=== PATIENT | female | born 1955 | race Asian ===

== ENCOUNTER 2019-06-02 06:27 | Day surgery (SDC) | payer MEDICARE, BC ==
[2019-06-02] MEDS ORDERED: BUPIVACAINE 0.75% (MPF) 10 ML INJ (06:48)
[2019-06-02] MEDS ORDERED: TETRACAINE 0.5% 4 ML OPH (06:49)
[2019-06-02] MEDS ORDERED: EPINEPHrine 1 MG INJ (06:49)
[2019-06-02] MEDS ORDERED: LIDOCAINE /PF 2% 10 ML AMPUL (06:49)
[2019-06-02] MEDS ORDERED: NA BICARB 50 MEQ/50 ML VIAL (06:49)
[2019-06-02] MEDS: NEPAFENAC 0.1% 3 ML OPH OPER (07:08)
[2019-06-02] MEDS: CYCLOPENTOLATE 2% 2 ML OPH OPER (07:09)
[2019-06-02] MEDS: PHENYLephrine 10% 5 ML OPH OPER (07:09)
[2019-06-02] MEDS: MOXIFLOXACIN 0.5% 3 ML OPH OPER (07:09)
[2019-06-02] MEDS ORDERED: SEVOFLURANE 15 MIN (07:22)
[2019-06-02] MEDS ORDERED: EPHEDrine 25 MG/5 ML SYG (07:22)
[2019-06-02] MEDS ORDERED: LIDOCAINE 2% (SDV) 5 ML INJ (07:22)
[2019-06-02] MEDS ORDERED: PROPOFOL 200 MG INJ (07:22)
[2019-06-02] MEDS ORDERED: FENTAnyl 50 MCG/ML VIAL (07:23)
[2019-06-02] MEDS: LIDOCAINE 1% (MPF) 10 ML INJ (08:05)
[2019-06-02] MEDS: TIMOLOL 0.5% 5 ML OPH (08:16)
[2019-06-02] MEDS ORDERED: ONDANSETRON 4 MG INJ (08:18)
== END 2019-06-02 11:31 | disposition home or self-care (01) ==
LOC: SDS 06:27
DX: H25.12 Age-related nuclear cataract, left eye (principal); I10 Essential (primary) hypertension
CPT/HCPCS: 66984